=== PATIENT | female | born 1935 | race Caucasian/White ===

== ENCOUNTER → 2016-05-07 16:08 | Outpatient (CLI) | payer MEDICARE, MEDICAID ==
[2014-12-04 13:26] VITALS: BMI 29.8
[~2016-05-07 16:08] MED LIST: ADVIL200 MG PO; BAYER CHEWABLE81 MG PO; BETAPACE 80 MG80 MG PO; CARAFATE1 G/10 ML PO; EXELON4.5 MG PO; FOLIC ACID1 MG PO; LISINOPRIL10 MG PO; MOBIC7.5 MG PO; NAMENDA10 MG PO; NORVASC10 MG PO; PROTONIX40 MG PO; XARELTO15 MG PO
== END | disposition home or self-care (01) ==
LOC: D.LABREF 16:08
DX: I50.9 Heart failure, unspecified (principal); R60.0 Localized edema